=== PATIENT | male | born 1980 | race Caucasian/White ===

== ENCOUNTER 2018-06-29 22:46 | Observation (INO) | payer MEDICAID ==
[~2018-06-29] VITALS: Ht 177.8 cm; Wt 100.0 kg
[2018-06-29 23:38] LABS: BASOPHILS 0.2 % (0-2); EOSINOPHILS 1.2 % (0-7); HEMATOCRIT 44.3 % (42.0-54.0); HEMOGLOBIN 15.6 g/dL (13.5-17.5); IMMATURE GRANULOCYTES 0.2 % (0-5); LYMPHOCYTES 28.2 % (15-50); MCH 31.3 pg (26.0-34.0); MCHC 35.2 g/dL (31.0-37.0); MEAN PLATELET VOLUME 9.8 fL (7.4-10.4); MONOCYTES 9.6 % (2-11); NEUTROPHILS 60.6 % (40-80); PLATELET COUNT 139 10x3/uL (130-400); RBC 4.98 10x6/uL (4.20-6.10); RDW 13.6 % (11.5-14.5); WBC 8.5 10x3/uL (4.8-10.8)
[2018-06-29 23:50] LABS: ALBUMIN 3.5 g/dL (3.4-5.0); ALKALINE PHOSPHATASE 72 U/L (46-116); ALT (SGPT) 30 U/L (10-68); AMYLASE - SERUM 64 U/L (25-115); BILIRUBIN - TOTAL 0.45 mg/dL (0.2-1.3); CALC OSMOLALITY 276 mosm/kg (275-300); CALCIUM 8.9 mg/dL (8.5-10.1); CARBON DIOXIDE 30.8 mmol/L (21.0-32.0); CHLORIDE - SERUM 100 mmol/L (98-107); CREATININE - SERUM 1.1 mg/dL (0.6-1.3); GLUCOSE 122 mg/dL (74-106); LIPASE 260 U/L (73-393); POTASSIUM - SERUM 4.5 mmol/L (3.5-5.1); PROTEIN - SERUM 7.6 g/dL (6.4-8.2); SODIUM 138 mmol/L (136-145); UREA NITROGEN 13 mg/dL (7-18); eGFR NON AFRICAN AMERICAN 79 mL/min (90-120)
[2018-06-29 23:59] LABS: COLOR YELLOW (YELLOW)
[2018-06-30] VITALS (7 sets, daily range): BP systolic 99–114; BP diastolic 52–67; Ht 177.8 cm; Wt 100.0 kg
[2018-06-30] LABS: APPEARANCE CLEAR (CLEAR); BILIRUBIN NEGATIVE (NEGATIVE); GLUCOSE NEGATIVE (NEGATIVE); KETONE NEGATIVE (NEGATIVE); NITRITE NEGATIVE (NEGATIVE); PROTEIN NEGATIVE (NEGATIVE); RED CELLS - URINE 0-5 /hpf (0-5); SPECIFIC GRAVITY 1.025 (1.005-1.020); UROBILINOGEN NORMAL (NORMAL); WHITE CELLS - URINE NSEEN /hpf (0-5)
--- NOTE | 2018-06-30 00:04 | NUR ---
PT REPORTS TO ED C/O R SIDED ABD PAIN AND R FLANK PAIN THAT BEGAN YESTERDAY MORNING. PT DENIES CHANGES IN URINATION. PT REPORTS HX OF KIDNEY STONES AND STATES "IT FEELS SIMILAR". PT ALERT, ORIENTED. NO S/S OF ACUTE DISTRESS NOTED. PT REPORTS PAIN INCREASES WITH MOVEMENT AND AMBULATION.
--- NOTE | 2018-06-30 00:23 | NUR ---
PT RETURNED VIA WC FROM CT.
--- NOTE | 2018-06-30 00:47 | NUR ---
PT TO BE ADMITTED, STATES HIS PAIN IS BETTER 5/10 ON PAIN SCALE.
--- NOTE | 2018-06-30 01:10 | NUR ---
PT UPDATED ON PLAN OF CARE, NO S/S OF ACUTE DISTRESS NOTED.
--- NOTE | 2018-06-30 01:47 | NUR ---
PT ARRIVED ON UNIT VIA WHEELCHAIR, ESCORTED BY MONTY IBARRA. ORIENTED TO ROOM AND CALL LIGHT. TEACHING DONE ON NPO STATUS.
--- NOTE | 2018-06-30 01:52 | NUR ---
GAVE MORPHINE 4 MG IVP PER PT REQUEST FOR PAIN. WILL MONITOR FOR EFFECTIVENESS.
--- NOTE | 2018-06-30 02:08 | NUR ---
ADMISSION ASSESSMENT AND HISTORY COMPLETE.
--- NOTE | 2018-06-30 06:55 | NUR ---
I CONCUR WITH DYER ASSISTANT ASSESSMENT.
--- NOTE | 2018-06-30 09:48 | NUR ---
ENCOURAGED TO USE CALL LIGHT FOR ASSIST.ALERT AND ORIENTEDWITH TENDERNESS NOTED ON PALPATION TO RUQ AND RLQ ANTERIOR. BS NOTED X4. DR. HUNG HERE FOR CONSULT AND TO REMAIN NPO AT THIS TIME. IV LT. HAND INFUSING AT PRESCRIBED RATE.
[2018-06-30 11:05] LABS: BASOPHILS 0.2 % (0-2); EOSINOPHILS 1.4 % (0-7); HEMATOCRIT 41.1 % (42.0-54.0); HEMOGLOBIN 14.3 g/dL (13.5-17.5); IMMATURE GRANULOCYTES 0.2 % (0-5); LYMPHOCYTES 28.2 % (15-50); MCH 31.2 pg (26.0-34.0); MCHC 34.8 g/dL (31.0-37.0); MCV 89.5 fL (80.0-100.0); MEAN PLATELET VOLUME 9.6 fL (7.4-10.4); MONOCYTES 10.3 % (2-11); NEUTROPHILS 59.7 % (40-80); PLATELET COUNT 115 10x3/uL (130-400); RBC 4.59 10x6/uL (4.20-6.10); RDW 13.9 % (11.5-14.5); WBC 5.6 10x3/uL (4.8-10.8)
--- NOTE | 2018-06-30 13:15 | NUR ---
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
--- NOTE | 2018-06-30 13:29 | NUR ---
SPOKE WITH DR SIDDIQUI IN REGARDS TO PT DIET AND PER DR SIDDIQUI, LEAVING DIET UP TO PRIMARY CARE TEAM, PAG[facility] AND WAS ADVISED TO START PT ON CLEAR LIQUIDS FOR NOW, PLACED ORDER IN PT CHART
--- NOTE | 2018-06-30 18:31 | NUR ---
PT REFUSES TO WEAR SCD'S WITH RISK VS BENEFITS EXPLAINED
--- NOTE | 2018-06-30 19:20 | NUR ---
AAOX4. IV TO THE LEFT FOREARM INFUSING NS @ 125. RATES PAIN TO THE RIGHT UPPER AND LOWER QUADRANT 2 AT THIS TIME. DENIES PAIN MEDICATION AT THIS TIME. REFUSES TO WEAR SCD'S EVEN WITH EDUCATION PROVIDED. PROVIDED TORO PER REQUESTS.
--- NOTE | 2018-06-30 20:40 | NUR ---
PT REQUESTS MILK SHAKE. WENT OVER CLEAR LIQUID OPTIONS WITH PT. VERBALIZES UNDERSTANDING.
--- NOTE | 2018-06-30 21:40 | NUR ---
REQUESTS PAIN MEDICINE. ADMINISTERED ORDERED. PT TOLERATED WITH NO ISSUES AT THIS TIME.
--- NOTE | 2018-07-01 00:10 | NUR ---
FAMILY IN ROOM. ASKING FOR SWEET TEA FOR PATIENT. PROVIDED EDUCATION WITH PATIENT FAMILY MEMBER ABOUT CLEAR LIQUID DIET AND WHAT ALLOWED AND WHY. PT MOTHER VERBALIZES UNDERSTANDING.
[2018-07-01 00:56] VITALS: BP 114/57
--- NOTE | 2018-07-01 04:10 | NUR ---
PT RESTING WHEN ENTERING ROOM. EYES CLOSED AND UNLABORED RESPIRATIONS NOTED. SWEET TEA ON BED SIDE TABLE X 2.
[2018-07-01 05:52] VITALS: BP 108/46
[2018-07-01 05:55] LABS: BASOPHILS 0.1 % (0-2); EOSINOPHILS 1.7 % (0-7); HEMATOCRIT 38.5 % (42.0-54.0); HEMOGLOBIN 13.2 g/dL (13.5-17.5); IMMATURE GRANULOCYTES 0.1 % (0-5); LYMPHOCYTES 29.6 % (15-50); MCH 30.6 pg (26.0-34.0); MCHC 34.3 g/dL (31.0-37.0); MCV 89.3 fL (80.0-100.0); MEAN PLATELET VOLUME 9.7 fL (7.4-10.4); MONOCYTES 10.3 % (2-11); NEUTROPHILS 58.2 % (40-80); PLATELET COUNT 121 10x3/uL (130-400); RBC 4.31 10x6/uL (4.20-6.10); RDW 13.6 % (11.5-14.5); WBC 6.9 10x3/uL (4.8-10.8)
[2018-07-01 06:06] LABS: ALBUMIN 2.8 g/dL (3.4-5.0); ALKALINE PHOSPHATASE 57 U/L (46-116); ALT (SGPT) 33 U/L (10-68); BILIRUBIN - TOTAL 0.75 mg/dL (0.2-1.3); CALC OSMOLALITY 277 mosm/kg (275-300); CALCIUM 8.5 mg/dL (8.5-10.1); CARBON DIOXIDE 28.5 mmol/L (21.0-32.0); CHLORIDE - SERUM 105 mmol/L (98-107); GLUCOSE 94 mg/dL (74-106); POTASSIUM - SERUM 4.1 mmol/L (3.5-5.1); PROTEIN - SERUM 6.1 g/dL (6.4-8.2); SODIUM 140 mmol/L (136-145); UREA NITROGEN 11 mg/dL (7-18); eGFR NON AFRICAN AMERICAN 88 mL/min (90-120)
[2018-07-01 07:00] VITALS: BP 118/43
[2018-07-01 08:21] VITALS: BP 118/43
--- NOTE | 2018-07-01 09:00 | NUR ---
PT ALERT AND ORIENTED WITH CONTINUED TENDERNESS TORUQ AND RLQ OF ABDOMEN WITH BS NOTED. MS GIVEN PER ORDER FOR AIN MANAGEMENT. UP ADLIB WITH IVF INFUSING AT PRESCRIBED RATE. ENCOURAGED TO USE CALL LIGHT FOR ASSIST.
[2018-07-01] MEDS ORDERED: NORCO-10 PO (11:47)
--- NOTE | 2018-07-01 13:13 | NUR ---
PT IV DISCONTINUED AND VERBALIZED UNDERSTANDING OF DISCHARGE INSTRUCTIONS. STABLE AT TIME OF DISCHARGE AND LEAVING POV. NO COMPLAINTS OF PAIN OR DISCMFORT AT THIS TIME WITH RX FIVEN FOR HYDROCODONE
== END 2018-07-01 13:15 | disposition home or self-care (01) ==
LOC: D.ER 22:46 → D.EDHOLD 06-30 00:33 → OBSVTIME 06-30 00:33 → D.MS 06-30 01:00
PROVIDERS: Family Medicine; ADMIT Family Medicine; ATTEND Family Medicine
DX: K55.069 Acute infarction of intestine, part and extent unspecified (principal); E86.0 Dehydration; R31.9 Hematuria, unspecified; F17.213 Nicotine dependence, cigarettes, with withdrawal; L98.9 Disorder of the skin and subcutaneous tissue, unspecified

== ENCOUNTER 2020-05-14 22:35 | Emergency (ER) | payer MEDICAID ==
[~2020-05-14] VITALS: Ht 177.8 cm; Wt 115.5 kg
[~2020-05-14 22:35] MED LIST: NORCO-10 PO
[2020-05-14 22:39] VITALS: BP 114/84; Ht 177.8 cm; Wt 115.5 kg
[2020-05-14] MEDS ORDERED: ADIPEX-P37.5 MG PO (22:49)
[2020-05-14 23:14] LABS: BASOPHILS 0.1 % (0-2); EOSINOPHILS 0.3 % (0-7); IMMATURE GRANULOCYTES 0.2 % (0-5); LYMPHOCYTE ABS# 2.53 10x3/uL (1.32-3.57); LYMPHOCYTES 29.1 % (15-50); MCH 30.7 pg (26.0-34.0); MCHC 34.1 g/dL (31.0-37.0); MCV 90.2 fL (80.0-100.0); MEAN PLATELET VOLUME 9.2 fL (7.4-10.4); NEUTROPHIL ABS# 5.48 10x3/uL (1.78-5.38); NEUTROPHILS 63.3 % (40-80); RBC 4.88 10x6/uL (4.20-6.10); RDW 13.4 % (11.5-14.5); WBC 8.7 10x3/uL (4.8-10.8)
[2020-05-14 23:15] LABS: PLATELET COUNT 157 10x3/uL (130-400)
[2020-05-14 23:16] LABS: BILIRUBIN NEGATIVE (NEGATIVE); KETONE NEGATIVE (NEGATIVE); NITRITE NEGATIVE (NEGATIVE); UROBILINOGEN NORMAL mg/dL (< 2)
[2020-05-14 23:23] LABS: CALC OSMOLALITY 273 mosm/kg (275-300); CALCIUM 9.3 mg/dL (8.5-10.1); CARBON DIOXIDE 27.5 mmol/L (21.0-32.0); CHLORIDE - SERUM 98 mmol/L (98-107); CREATININE - SERUM 1.1 mg/dL (0.6-1.3); GLUCOSE 98 mg/dL (74-106); POTASSIUM - SERUM 3.7 mmol/L (3.5-5.1); SODIUM 136 mmol/L (136-145); UREA NITROGEN 17 mg/dL (7-18); eGFR NON AFRICAN AMERICAN 78 mL/min (90-120)
[2020-05-14 23:37] LABS: ALBUMIN 4.2 g/dL (3.4-5.0); ALKALINE PHOSPHATASE 50 U/L (30-120); ALT (SGPT) 47 U/L (10-68); BILIRUBIN - TOTAL 0.72 mg/dL (0.2-1.3); PROTEIN - SERUM 7.9 g/dL (6.4-8.2)
== END 2020-05-15 00:37 | disposition home or self-care (01) ==
LOC: D.ER 22:35
PROVIDERS: Family Medicine
DX: R53.83 Other fatigue (principal); R51.9 Headache, unspecified; R53.1 Weakness